=== PATIENT | female | born 1940 | race Hispanic/Latino ===

== ENCOUNTER 2017-07-08 15:01 | Emergency (ER) | payer MEDICARE ==
[2017-07-08 15:43] LABS: Bilirubin Negative (Negative); Blood, Urine Moderate (Negative); Clarity Hazy (Clear); Glucose, Urine (Dipstick) 500 mg/dL (Negative); Leukocyte Small (Negative); Nitrite Negative (Negative); Protein, Urine (Dipstick) 30 mg/dL (Neg-Trace); Urobilinogen 0.2 mg/dL (0.2-1.0); pH, Urine 5.5 (5.0-9.0)
[2017-07-08 15:48] LABS: Bacteria/HPF 1+ HPF (None Seen); Other Casts/LPF 0-3 FINELY GRAN LPF (0-3 Hyaline); RBC/HPF 0-3 HPF (0-3); Yeast-All Forms 2+ HPF (None Seen)
[2017-07-08 17:58] LABS: #Basophils 0.1 thou/uL (0.0-0.2); #Eosinphils 0.1 thou/uL (0.0-0.7); #Lymphocytes 1.7 thou/uL (1.20-3.40); #Monocytes 0.3 thou/uL (0.11-0.59); %Basophils 0.8 % (0.0-1.0); %Eosinophils 1.9 % (0.0-10.0); %Lymphocytes 23.2 % (21.0-51.0); %Monocytes 3.9 % (0.0-10.0); %Neutrophils 70.3 % (42.0-75.0); Hemoglobin 14.2 g/dL (12.0-16.0); Mean Corpuscular HGB CONC 33.7 g/dL (32.0-36.0); Mean Corpuscular Hemoglobin 28.3 pg (27.0-31.0); Mean Platelet Volume 8.9 fL (7.4-10.4); Platelet Count 222 thou/uL (130-400); RBC Distribution Width 11.8 % (11.5-14.5); Red Blood Cell (RBC) Count 5.02 mill/uL (4.20-5.40); White Blood Cell (WBC) Count 7.1 thou/uL (4.8-10.8)
[2017-07-08] MEDS ORDERED: Ondansetron ODT 4 MG TAB ONE (18:04)
[2017-07-08] MEDS ORDERED: Metoclopramide HCl 10 MG/2 ML VIAL ONE (18:04)
[2017-07-08] MEDS ORDERED: Ketorolac Tromethamine 30 MG/ML VIAL ONE (18:04)
[2017-07-08] MEDS ORDERED: Insulin Regular 300 UNITS/3 ML VIAL ONE (18:04)
[2017-07-08 18:16] LABS: ALT (SGPT) 25 U/L (8-55); AST (SGOT) 14 U/L (5-34); Albumin 4.2 g/dL (3.4-4.8); Alkaline Phosphatase 60 U/L (40-150); Anion Gap 15 mmol/L (10-20); BUN (Urea Nitrogen) 20 mg/dL (9.8-20.1); Bilirubin, Total 1.2 mg/dL (0.2-1.2); Calc. Creatinine Clearance 0 mL/min (70-130); Calcium 9.7 mg/dL (7.8-10.44); Carbon Dioxide 23 mmol/L (23-31); Chloride 101 mmol/L (98-107); Estimated GFR-MDRD 38; Globulin 2.9 g/dL (2.4-3.5); Glucose 279 mg/dL (83-110); Potassium 4.4 mmol/L (3.5-5.1); Protein, Total 7.1 g/dL (6.0-8.3); Sodium 135 mmol/L (136-145)
[2017-07-08] MEDS ORDERED: Nitrofurantoin Monohyd/M-Cryst 100 MG CAP ONE (18:41)
== END 2017-07-08 19:13 | disposition home or self-care (01) ==
LOC: MADERS 15:01
DX: N39.0 Urinary tract infection, site not specified (principal); E11.22 Type 2 diabetes mellitus with diabetic chronic kidney disease; I12.9 Hypertensive chronic kidney disease with stage 1 through stage 4 chronic kidney disease, or unspecified chronic kidney disease; N18.9 Chronic kidney disease, unspecified; E03.9 Hypothyroidism, unspecified; K21.9 Gastro-esophageal reflux disease without esophagitis; E78.5 Hyperlipidemia, unspecified; M19.90 Unspecified osteoarthritis, unspecified site; F41.9 Anxiety disorder, unspecified; F32.9 Major depressive disorder, single episode, unspecified
CPT/HCPCS: 36416; 80053; 81001; 84443; 85025; 87086; 96374; 96375; 36415-59; J1815; J1885; J2765; Q0162

== ENCOUNTER 2018-10-04 09:26 | Emergency (ER) | payer MEDICARE ==
[2018-10-04 10:12] LABS: Bilirubin Negative (Negative); Blood, Urine Negative (Negative); Clarity Clear (Clear); Glucose, Urine (Dipstick) 250 mg/dL (Negative); Leukocyte Negative (Negative); Nitrite Negative (Negative); Protein, Urine (Dipstick) 30 mg/dL (Neg-Trace); Urobilinogen 0.2 mg/dL (Less than 2)
[2018-10-04] MEDS ORDERED: Aspirin Chewable 81 MG TAB ONE (10:15)
[2018-10-04 10:18] LABS: Bacteria/HPF Rare-Few HPF (None Seen); RBC/HPF 0-3 HPF (0-3); Squamous Epithelial 0-3 HPF (0-3); WBC/HPF 0-3 HPF (0-3)
--- NOTE | 2018-10-04 10:25 | RAD ---
RADIOGRAPH CHEST 2 VIEW: DATE: 10/04/2018 HISTORY: 78-year-old female with dyspnea FINDINGS: The thoracic aorta is tortuous and ectatic. There is no evidence of airspace density, pulmonary edema , or pneumothorax. There is no cardiomegaly or pleural effusion. IMPRESSION: 1) No acute cardiopulmonary findings. 2) ectasia of thoracic aorta.
[2018-10-04 10:31] LABS: #Basophils 0.1 thou/uL (0.0-0.2); #Eosinphils 0.3 thou/uL (0.0-0.7); #Lymphocytes 1.8 thou/uL (1.20-3.40); #Monocytes 0.5 thou/uL (0.11-0.59); %Basophils 0.7 % (0.0-1.0); %Eosinophils 3.3 % (0.0-10.0); %Lymphocytes 23.6 % (21.0-51.0); %Neutrophils 66.4 % (42.0-75.0); Hemoglobin 14.3 g/dL (12.0-16.0); Mean Corpuscular HGB CONC 34.6 g/dL (32.0-36.0); Mean Corpuscular Hemoglobin 29.1 pg (27.0-31.0); Mean Corpuscular Volume 84.2 fL (78.0-98.0); Mean Platelet Volume 10.7 fL (7.4-10.4); Platelet Count 232 thou/uL (130-400); RBC Distribution Width 11.6 % (11.5-14.5); Red Blood Cell (RBC) Count 4.92 mill/uL (4.20-5.40); White Blood Cell (WBC) Count 7.6 thou/uL (4.8-10.8)
[2018-10-04 10:39] LABS: ALT (SGPT) 11 U/L (8-55); AST (SGOT) 14 U/L (5-34); Albumin 4.4 g/dL (3.4-4.8); Alkaline Phosphatase 69 U/L (40-150); Anion Gap 17 mmol/L (10-20); BUN (Urea Nitrogen) 22 mg/dL (9.8-20.1); Bilirubin, Total 1.1 mg/dL (0.2-1.2); CK (CPK) 56 U/L (29-168); Calc. Creatinine Clearance 0 mL/min (70-130); Calcium 10.1 mg/dL (7.8-10.44); Carbon Dioxide 23 mmol/L (23-31); Chloride 101 mmol/L (98-107); Estimated GFR-MDRD 39; Globulin 2.9 g/dL (2.4-3.5); Glucose 284 mg/dL (83-110); Potassium 4.6 mmol/L (3.5-5.1); Protein, Total 7.3 g/dL (6.0-8.3); Sodium 136 mmol/L (136-145)
[2018-10-04] MEDS ORDERED: Potassium Chloride 20 MEQ TAB ONE (11:06)
== END 2018-10-04 11:15 | disposition home or self-care (01) ==
LOC: MADERS 09:26
DX: R06.00 Dyspnea, unspecified (principal); E11.65 Type 2 diabetes mellitus with hyperglycemia; E03.9 Hypothyroidism, unspecified; K21.9 Gastro-esophageal reflux disease without esophagitis; E78.5 Hyperlipidemia, unspecified; I10 Essential (primary) hypertension; F41.9 Anxiety disorder, unspecified; F32.9 Major depressive disorder, single episode, unspecified; Z79.899 Other long term (current) drug therapy; Z79.84 Long term (current) use of oral hypoglycemic drugs
CPT/HCPCS: 71046; 80053; 81003; 81015; 82550; 83880; 84484; 85025; 93005; 94760

== ENCOUNTER 2019-04-18 14:12 | Emergency (ER) | payer MEDICARE ==
[2019-04-18 15:07] LABS: #Basophils 0.1 thou/uL (0.0-0.2); #Eosinphils 0.2 thou/uL (0.0-0.7); #Lymphocytes 1.2 thou/uL (1.20-3.40); #Monocytes 0.4 thou/uL (0.11-0.59); #Neutrophils 6.8 thou/uL (1.40-6.50); %Basophils 0.6 % (0.0-1.0); %Eosinophils 1.9 % (0.0-10.0); %Lymphocytes 14.4 % (21.0-51.0); %Monocytes 4.4 % (0.0-10.0); %Neutrophils 78.7 % (42.0-75.0); Mean Corpuscular HGB CONC 32.7 g/dL (32.0-36.0); Mean Corpuscular Hemoglobin 28.2 pg (27.0-31.0); Mean Corpuscular Volume 86.5 fL (78.0-98.0); Mean Platelet Volume 9.6 fL (7.4-10.4); Platelet Count 259 thou/uL (130-400); RBC Distribution Width 11.5 % (11.5-14.5); White Blood Cell (WBC) Count 8.6 thou/uL (4.8-10.8)
--- NOTE | 2019-04-18 15:15 | RAD ---
UPRIGHT PORTABLE CHEST 1 VIEW: Date: 04/18/2019 HISTORY: Chest pain. COMPARISON: 10/04/2018. FINDINGS: Heart size is normal. The lungs are clear. No confluent pneumonia, overt edema, or pleural effusion. IMPRESSION: Old granulomatous disease. No acute intrathoracic disease. Stable from prior study. POS: [facility]
[2019-04-18] MEDS ORDERED: Nitroglycerin 2% Ointment 1 INCH/1 GM Packet ONE (15:18)
[2019-04-18] MEDS ORDERED: Aspirin Chewable 81 MG TAB ONE (15:18)
[2019-04-18] MEDS ORDERED: Mag-Al Plus 1200 MG/1200 MG/120 MG/30 ML UDCUP ONE (15:19)
[2019-04-18] MEDS ORDERED: Lidocaine Viscous Sol 2% 15 ml UD Cup ONE (15:19)
[2019-04-18 15:24] LABS: ALT (SGPT) 12 U/L (8-55); AST (SGOT) 15 U/L (5-34); Albumin 4.7 g/dL (3.4-4.8); Alkaline Phosphatase 62 U/L (40-110); Anion Gap 18 mmol/L (10-20); BUN (Urea Nitrogen) 16 mg/dL (9.8-20.1); Bilirubin, Total 1.3 mg/dL (0.2-1.2); CK (CPK) 42 U/L (29-168); Calc. Creatinine Clearance 0 mL/min (70-130); Calcium 9.7 mg/dL (7.8-10.44); Carbon Dioxide 21 mmol/L (23-31); Chloride 99 mmol/L (98-107); Estimated GFR-MDRD 38; Globulin 2.8 g/dL (2.4-3.5); Glucose 193 mg/dL (83-110); Lipase 16 U/L (8-78); Potassium 4.4 mmol/L (3.5-5.1); Protein, Total 7.5 g/dL (6.0-8.3); Sodium 134 mmol/L (136-145)
== END 2019-04-18 14:21 | disposition short-term general hospital (02) ==
LOC: MADERS 14:12
DX: R07.9 Chest pain, unspecified (principal); E11.9 Type 2 diabetes mellitus without complications; E03.9 Hypothyroidism, unspecified; K21.9 Gastro-esophageal reflux disease without esophagitis; E78.5 Hyperlipidemia, unspecified; E78.00 Pure hypercholesterolemia, unspecified; I10 Essential (primary) hypertension; M19.90 Unspecified osteoarthritis, unspecified site; F41.9 Anxiety disorder, unspecified; F32.9 Major depressive disorder, single episode, unspecified; Z79.899 Other long term (current) drug therapy
CPT/HCPCS: 36415; 71045; 80053; 82550; 83690; 84484; 85025; 93005

== ENCOUNTER 2019-08-07 17:36 | Outpatient (CLI) | payer MEDICARE ==
[2019-08-07 21:43] LABS: Hemoglobin A1c 9.9 % (4.0-6.0)
[2019-08-07 21:49] LABS: ALT (SGPT) 14 U/L (8-55); AST (SGOT) 14 U/L (5-34); Albumin 4.6 g/dL (3.4-4.8); Alkaline Phosphatase 80 U/L (40-110); Anion Gap 13 mmol/L (10-20); BUN (Urea Nitrogen) 11 mg/dL (9.8-20.1); Bilirubin, Total 0.9 mg/dL (0.2-1.2); Calc. Creatinine Clearance 0 mL/min (70-130); Calcium 9.8 mg/dL (7.8-10.44); Carbon Dioxide 24 mmol/L (23-31); Cardiac Risk 4.9 (Less than 4.5); Chloride 103 mmol/L (98-107); Cholesterol 246 mg/dl (< 200 Desired); Estimated GFR-MDRD 41; Globulin 2.8 g/dL (2.4-3.5); Glucose 280 mg/dL (83-110); HDL Cholesterol 50 mg/dL (>60 Neg Risk); LDL Cholesterol, Calculated 168 mg/dL; Potassium 4.1 mmol/L (3.5-5.1); Protein, Total 7.4 g/dL (6.0-8.3); Sodium 136 mmol/L (136-145); Triglycerides 142 mg/dL (Less than 150)
== END 2019-08-07 17:37 | disposition home or self-care (01) ==
LOC: MADLAB 17:36
PROVIDERS: ATTEND Family Medicine
DX: E78.2 Mixed hyperlipidemia (principal); E53.8 Deficiency of other specified B group vitamins; E11.9 Type 2 diabetes mellitus without complications
CPT/HCPCS: 36415; 80053; 80061; 82607; 82746; 83036

== ENCOUNTER 2019-12-26 15:23 | Outpatient (CLI) | payer MEDICARE, OTHER ==
--- NOTE | 2019-12-26 16:06 | RAD ---
XR Shoulder Lt 3 View STANDARD HISTORY: Arthritis, left shoulder pain FINDINGS: No fracture or dislocation is identified. There are degenerative changes in the acromial clavicular j oint. There is evidence of old granulomatous disease in the visualized portions of the chest.
--- NOTE | 2019-12-26 16:07 | RAD ---
XR Shoulder Rt 3 View STANDARD History: Arthritis Comparison: None. Findings: Mild narrowing of the acromioclavicular joint with osteophyte formation. No acute displaced fracture or malalignment. Ribs are intact. Impression: Mild degenerative change. No acute osseous abnormality.
--- NOTE | 2019-12-26 16:10 | RAD ---
XR Cervical Sp Com W/Obl Fl/Ex History: Radiculopathy Comparison: None. Findings: Moderate vascular plaque of both carotid bulbs and proximal internal carotid arteries. Open -mouth odontoid view demonstrates bilateral C1/C2 articulation narrowing. Mandible is intact. Osseous neural foraminal narrowing on the left at C3/C4 and C4/C5. Mild osseous neural foraminal narr owing on the right at C3/C4 and C4/C5. Advanced degenerative disc space height loss at C3/C4 and C4/C5. Moderate narrowing of the C2/C3 disc space with retrolisthesis approximately 3 mm. Mild increased translation with flexion at C2/C3 with flush posterior vertebral body [place]. Impression: Advanced mid cervical spine spondylosis with mild increased translation with cervical fle xion at C2/C3.
== END 2019-12-26 15:24 | disposition home or self-care (01) ==
LOC: MADRAD 15:23
PROVIDERS: ATTEND Pain Medicine Pain Medicine
DX: M25.511 Pain in right shoulder (principal); M25.512 Pain in left shoulder; M47.22 Other spondylosis with radiculopathy, cervical region; M53.82 Other specified dorsopathies, cervical region; M19.011 Primary osteoarthritis, right shoulder
CPT/HCPCS: 72052

== ENCOUNTER 2020-02-26 18:43 | Outpatient (CLI) | payer OTHER | END 2020-02-26 18:44 | disposition home or self-care (01) | LOC: MADLAB 18:43 | PROVIDERS: ATTEND Family Medicine | DX: R39.9 Unspecified symptoms and signs involving the genitourinary system (principal) | CPT/HCPCS: 87086 ==

== ENCOUNTER 2020-12-30 11:21 | Emergency (ER) | payer MEDICARE ==
[2020-12-30] MEDS ORDERED: Ketorolac Tromethamine 30 MG/ML VIAL ONE (13:08)
[2020-12-30] MEDS ORDERED: predniSONE 20 MG TAB ONE ×2 (13:08)
[2020-12-30] MEDS ORDERED: Acetaminophen/Codeine 30-300mg Tablet ONE (13:18)
== END 2020-12-30 14:17 | disposition home or self-care (01) ==
LOC: MADERS 11:21
DX: M16.12 Unilateral primary osteoarthritis, left hip (principal); E11.9 Type 2 diabetes mellitus without complications; E03.9 Hypothyroidism, unspecified; K21.9 Gastro-esophageal reflux disease without esophagitis; E78.5 Hyperlipidemia, unspecified; I10 Essential (primary) hypertension; Z79.82 Long term (current) use of aspirin; Z79.899 Other long term (current) drug therapy
CPT/HCPCS: 96372; J1885; J7512

== ENCOUNTER 2023-01-24 16:37 | Outpatient (CLI) | payer MEDICARE | END 2023-01-24 16:38 | disposition home or self-care (01) | LOC: MADRAD 16:37 | PROVIDERS: ATTEND Family Medicine | DX: M54.6 Pain in thoracic spine (principal); M25.511 Pain in right shoulder; M25.512 Pain in left shoulder; M47.814 Spondylosis without myelopathy or radiculopathy, thoracic region; M43.8X4 Other specified deforming dorsopathies, thoracic region; M12.811 Other specific arthropathies, not elsewhere classified, right shoulder | CPT/HCPCS: 72070 ==